=== PATIENT | male | born 1960 | race African-American/Black ===

== ENCOUNTER 2018-10-03 09:48 | Emergency (ER) | payer MEDICAID ==
[~2018-10-03] VITALS: Ht 188 cm; Wt 83.0 kg
[2018-10-03] MEDS ORDERED: ASPIRIN 81MG TABLET PO ONE (10:30)
[2018-10-03] MEDS ORDERED: NITROGLYCERIN 0.4MG TABLET SL SL PRN (10:30)
[2018-10-03 11:40] LABS: BASOPHILS % 0.7 % (0.0-2.0); EOSINOPHILS % 2.6 % (0.0-5.0); HEMATOCRIT. 43.7 % (42.0-52.0); HEMOGLOBIN. 14.5 g/dL (14.0-18.0); MEAN CORPUSCULAR HEMOGLOBIN 28.9 pg (28.0-32.0); MEAN CORPUSCULAR VOLUME 87.2 fL (80.0-94.0); MEAN PLATELET VOLUME 8.7 fl (7.4-10.4); MONOCYTES % 8.9 % (2.0-8.0); NEUTROPHILS % 62.8 % (40.0-76.0); PLATELET 211 x1000/uL (130-400); RED BLOOD CELL COUNT 5.01 mill/uL (4.7-6.1); RED CELL DISTRIBUTION WIDTH 13.9 % (11.6-14.6)
[2018-10-03 11:47] LABS: CHLORIDE 100 mEq/L (98-107)
[2018-10-03 13:11] VITALS: BP 123/68
== END 2018-10-03 13:16 | disposition home or self-care (01) ==
LOC: ER 10:24 → CANBEDREQ 13:58
DX: R07.89 Other chest pain (principal); F17.200 Nicotine dependence, unspecified, uncomplicated; E11.9 Type 2 diabetes mellitus without complications; E78.00 Pure hypercholesterolemia, unspecified; I10 Essential (primary) hypertension
CPT/HCPCS: 36415; 71045; 80053; 84484; 85025; 93005; 99284; 99406; Z7610

== ENCOUNTER 2018-12-27 20:19 | Emergency (ER) | payer MEDICAID | END 2018-12-27 21:43 | disposition left against medical advice (07) | LOC: ER 20:19 | DX: Z53.21 Procedure and treatment not carried out due to patient leaving prior to being seen by health care provider (principal) ==